=== PATIENT | female | born 1990 ===

== ENCOUNTER 2025-01-07 07:30 | Inpatient (IN) | payer OTHER ==
[~2025-01-07] VITALS: Ht 167.6 cm; Wt 104.3 kg
[2025-01-07 08:35] VITALS: BP 105/70
[2025-01-07] MEDS ORDERED: TAPAZOLE5 MG PO (08:37)
[2025-01-07] MEDS ORDERED: CITRACAL + D M1 EACH PO (08:37)
[2025-01-07 08:41] LABS: PH,URINE 8.5 (5.0-8.0); URINE APPEARANCE Cloudy; URINE BILIRRUBIN Negative (NEGATIVE); URINE BLOOD Negative; URINE COLOR Yellow; URINE GLUCOSE Negative (NEGATIVE); URINE KETONE Negative (NEGATIVE); URINE LEUKOCYTE Negative; URINE NITRATE Negative; URINE PROTEIN 30 (NEGATIVE)
[2025-01-07 08:43] LABS: HEMATOCRIT 39.4 % (36.0-45.00); HEMOGLOBIN 13.4 g/dL (12.0-15.00); MEAN CELL VOLUME 85.7 fL (80.00-100.00); MEAN CORPUSCULAR HEMOGLOBIN 29.2 pg (27.00-32.0); PLATELET COUNT 215 K/uL (150-450); RED CELL DISTRIBUTION WIDTH 13.8 % (11.5-14.5)
[2025-01-07 08:45] LABS: URINE BACTERIA 2515.1 uL (0.0-1933); URINE EPITHELIAL CELLS 88.6 uL (0.0-38.8); URINE RBC 121.8 uL (0.0-20.8); URINE WBC 21.6 uL (0.0-23.2)
[2025-01-07 08:55] LABS: URINE CAST 0.14 uL (0.0-1.40)
[2025-01-07 09:03] LABS: PARTIAL THROMBOPLASTIN TIME 26.8 SECONDS (22.0-34.0); PROTHROMBIN TIME 10.9 SECONDS (9.0-11.5)
[2025-01-07 09:21] LABS: ALBUMIN 3.6 gm/dL (3.4-5.0); BILIRUBIN TOTAL 0.38 mg/dL (0.3-1.2); CALCIUM 8.9 mg/dL (8.5-10.1); CREATININE SERUM 0.59 mg/dL (0.55-1.02); GFR 115.99; GLOBULINA 3.8 G/DL (2.4-3.5); POTASSIUM 4.41 mEq/L (3.5-5.1); TOTAL PROTEIN 7.4 gm/dL (6.4-8.2)
[2025-01-14] MEDS ORDERED: DEXAMETHASONE SODIUM PHOSPHATE 4 MG/ML VIAL ONE (11:26)
[2025-01-14] MEDS ORDERED: ENALAPRILAT DIHYDRATE 1.25 MG/ML VIAL IV PRN (13:30)
[2025-01-14] MEDS ORDERED: ONDANSETRON HCL 2 MG/ML VIAL IV PRN (13:30)
[2025-01-14] MEDS ORDERED: MORPHINE SULFATE 4 MG/ML VIAL IV ONE (14:05)
[2025-01-14] MEDS ORDERED: TRAMADOL HCL 50 MG TABLET PO SCH (17:00)
[2025-01-14] MEDS ORDERED: ACETAMINOPHEN 500 MG GEL..CAP PO SCH (17:00)
[2025-01-14] MEDS ORDERED: Calcium Carbonate 1 TAB TABLET PO SCH (17:00)
[2025-01-14] MEDS ORDERED: ACETAMINOPHEN 500 MG GEL..CAP PO ONE (17:09)
[2025-01-14 18:14] VITALS: BP 117/77; O2SAT 98
[2025-01-14] MEDS ORDERED: PANTOPRAZOLE SODIUM 40 MG/VIAL VIAL IV PUSH SCH (21:00)
[2025-01-15] VITALS: BP 105/67; O2SAT 97
[2025-01-15] MEDS ORDERED: LEVOTHYROXINE SODIUM 175 MCG TABLET PO NR (07:00)
[2025-01-15 08:31] VITALS: BP 109/74; O2SAT 99
[2025-01-15] MEDS ORDERED: CYCLOBENZAPRINE HCL 5 MG TABLET PO SCH (09:00)
== END 2025-01-15 10:11 | disposition home or self-care (01) | DRG 627 ==
LOC: SURH 01-14 07:30 → O/R 01-14 08:05 → SURH 01-14 08:05
PROVIDERS: ADMIT Surgery; ATTEND Surgery
PROC: 0GTK0ZZ Resection of Thyroid Gland, Open Approach (ICD-10-PCS; principal; 2025-01-14 09:15)
DX: E06.3 Autoimmune thyroiditis (principal); E05.00 Thyrotoxicosis with diffuse goiter without thyrotoxic crisis or storm